=== PATIENT | female | born 1930 | race African-American/Black ===

== ENCOUNTER 2016-03-13 21:20 | Outpatient (CLI) | payer MEDICARE, MEDICAID ==
[~2016-03-13 21:20] MED LIST: ALBU0.632 IH; ALBU17AE23 IH; ALBU8.5H2 IH; ALLP100T PO; AMLO2.5T2 PO; AMLO5TAB2 PO; ASP325TEC PO; ATRV10T PO; Azithromycin PO; CALC0.257 PO; CEFD300C3 PO; CYCL5TAB PO; FAMO20TA5 PO; FLUT1DIS26 IH; HUM100IN4 SQ; HUM100VI12 SQ; HUM100VI4 SQ; HYDR-508 PO; HYDR118S10 PO; HYDR1TAB66 PO; HYDR1TAB86 PO; INSA10V SQ; INSU100I14 SC; INSU100I29 SC; KCL20TCR PO; LEVE500T6 PO; LISI10TA PO; LISI20TA PO; MAGN-47 PO; MNTL10T PO; OFLO5DRO2 OS; PGLT30T PO; POTA20TA7 PO; PRD10T PO; PRED5DRO2I OS; Prednisone PO; RNT150T PO; TIZA2TAB3 PO; TORS10TA PO; TRAM-42 PO; TRS20T PO; [UNRECOGNIZED DRUG - CODE] OS; norflex PO
--- OUTSIDE RECORDS SUMMARY | 2016-03-13 22:33 | XMS REPORT | Continuity of Care Document ---
Author Author [facility] Organization [facility] Address Unknown Phone Unavailable Care Team Providers Care Passenger Interline Clerk Name Role Phone [facility] OF PCP Insurance Providers Payer Name Policy Number Subscriber Name Relationship [employer] Medicare [id number] Ritu Hahn 19 Self / Same As Patient [facility] [employer] [id number] Ritu Hahn 18 Self / Same As Patient Advance Directives Directive Response Recorded Date/Time Advance Directives No 07/06/14 7:17pm Health Care Power of Scraper Meat daughter working on it 07/06/14 7:17pm Organ Donor Yes 07/06/14 7:17pm Resuscitation Status Full Code 07/06/14 7:17pm Problems Medical Problems Problem Onset Date Status HTN (hypertension) Unknown Active Poor appetite Unknown Active Leukocytosis Unknown Active Seizure Unknown Active Hypoglycemia associated with diabetes Unknown Active Poor appetite Unknown Active Bronchitis Unknown Active Chest pain Unknown Active Hyperglycemia Unknown Active Medications Medication Dose Route Sig Days/Qty Instructions Order Date Discontinued Date Status Hum Insulin Nph/Reg Insulin Hm 12 Unit SQ BEDTIME 07/29/10 08/22/13 Discontinued Insulin Aspart 25 Units SQ DAILY TAKES IN AM 07/29/10 01/06/11 Discontinued Acetaminophen/Hydrocodone Bitart (Lortab) 1 Each PO Q6HR PRN 12/25/10 Discontinued Levetiracetam (Keppra) 500 Mg PO TWICE A DAY 07/29/10 Active Pioglitazone HCl 30 Mg PO DAILY 07/29/10 12/25/10 Discontinued Salmeterol Xinafoate/Fluticasone 1 Puff IH TWICE A DAY 07/29/10 Discontinued Famotidine (Pepcid) 20 Mg PO TWICE A DAY 07/29/10 08/22/13 Discontinued Potassium Chloride 20 Meq PO DAILY 07/29/10 02/26/14 Discontinued Montelukast Sodium 10 Mg PO BEDTIME 07/29/10 Active Albuterol 2 Puff IH EVERY 6 HOURS PRN SHORTNESS OF BREATH 07/29/10 08/22/13 Discontinued Torsemide 20 Mg PO DAILY 07/29/10 08/22/13 Discontinued Albuterol Sulfate (Proventil Nebs) 1 Each IH Q 4 - 6 HRS PRN 25 Qty 29/1201/06/11 Discontinued Tizanidine Hcl 2 Mg PO DAILY 12/25/10 08/22/13 Discontinued Allopurinol 100 Mg PO BEDTIME 12/25/10 Active Lisinopril 10 Mg PO DAILY 12/25/10 08/22/13 Discontinued Hydrocodone Bit/Acetaminophen 1 Tab PO FOUR TIMES DAILY PRN 01/03/11 08/22/13 Discontinued Bromfenac Sodium 1 Drop OS DAILY LEFT EYE DAILY DIRECTED 01/03/11 08/22/13 Discontinued Prednisolone Acetate 1 Drop OS FOUR TIMES DAILY 01/03/11 08/22/13 Discontinued Ofloxacin 1 Drop OS THREE TIMES A DAY ONE DROP LEFT EYE TID 01/03/11 08/22/13 Discontinued Hum Insulin Nph/Reg Insulin Hm 37 Units SQ DAILY 01/06/11 02/26/14 Discontinued Atorvastatin Calcium 10 Mg PO BEDTIME 01/06/11 Active Prednisone 10 Mg PO TAPER THEN 2 TABS DAILY FOR 3 DAYS 01/06/1108/22 Discontinued Hum Insulin Nph/Reg Insulin Hm 18 Units SQ BEDTIME 08/22/13 Discontinued Acetaminophen/Hydrocodone Bitart 1 Tab PO THREE TIMES A DAY PRN PAIN 08/22/13 02/26/14 Discontinued Albuterol 2 Puff IH EVERY 4HRS PRN SHORTNESS OF BREATH 08/22/13 Active Torsemide 30 Mg PO DAILY 08/22/13 Active Lisinopril 20 Mg PO DAILY 08/22/13 Active Ranitidine HCl 150 Mg PO TWICE A DAY PRN ACID REFLUX 08/22/13 Active Amlodipine Besylate 5 Mg PO DAILY 08/22/13 Active Calcitriol 0.25 Mcg PO DAILY 08/22/13 Active Aspirin 325 Mg PO DAILY 30 Qty 08/23/13 02/26/14 Discontinued Potassium Chloride 20 Meq PO DAILY 02/26/14 Active Hydrocodone/Acetaminophen 1 Tab PO FOUR TIMES DAILY PRN PAIN Active Lisinopril 10 Mg PO BEDTIME TAKES 1/2 (20MG) TABLET 02/26/14 Active Hum Insulin NPH/Reg Insulin Hm 34 Unit SQ DAILY 02/26/14 Active Hum Insulin NPH/Reg Insulin Hm 18 Unit SQ BEDTIME 02/26/14 Active Aspirin 325 Mg PO DAILY 02/26/14 Active Magnesium Hydroxide 30 Ml PO DAILY PRN CONSTIPATION 02/26/14 Active [Prednisone] 50 Mg PO DAILY@0700 5 Qty 02/26/14 07/06/14 Discontinued [Azithromycin] 250 Mg PO DAILY 3 Qty 02/26/14 07/06/14 Discontinued Social History Social History Problem Response Recorded Date/Time Alcohol Use Denies Use 07/06/2014 7:17pm Recreational Drug Use No 07/06/2014 7:17pm Recent Foreign Travel No 11/12/2013 7:26pm Recent Infectious Disease Exposure No 11/12/2013 7:26pm Hospitalization with Isolation Denies 07/06/2014 7:17pm Smoking Status Never a Smoker 07/06/2014 7:17pm Query Response Start Date Stop Date Smoking Status Never a Smoker Hospital Discharge Instructions No hospital discharge instructions. Plan of Care No plan of care. Functional Status No functional status results. Allergies, Adverse Reactions, Alerts Allergen Type Severity Reaction Status Last Updated No Known Drug Allergies Active 08/22/13 Immunizations Name Given Type Date of Pneumonia Vaccine 11/22/12 Historical Date of Influenza Vaccine 11/20/13 Historical Vital Signs Acute Vital Signs Vital Response Date/Time Temperature (Fahrenheit) 98.0 degrees F (97.6 - 99.5) Temperature (Calculated Celsius) 36.14752 degrees C (36.4 - 37.5) Pulse Rate (adult) 92 bpm (60 - 90) Respiratory Rate 18 bpm (12 - 24) O2 Sat by Pulse Oximetry 99 % (88 - 100) Blood Pressure 214/111 mm Hg Pain Pain Intensity 0 Height (Feet) 5 feet Height (Inches) 2 inches Height (Calculated Centimeters) 157.671355 cm Weight (Pounds) 284 pounds Weight (Calculated Kilograms) 128.341178 kilograms Calculated BMI 51.94 Results Laboratory Results Test Name Result Units Flags Reference Collection Date/Time Result Date/ Time Comments White Blood Count 14.9 10^3/uL H 4.3-11.0 07/06/2014 7:pm 07/06/2014 7: 36pm Red Blood Count 4.02 10^6/uL L 4.35-5.85 07/06/2014 7:07/06/2014 7: 36pm Hemoglobin 12.0 G/DL 11.5-16.0 07/06/2014 7:07/06/2014 7:36pm Hematocrit 37 % 35-52 07/06/2014 7:07/06/2014 7:36pm Mean Corpuscular Volume 92 FL 80-99 07/06/2014 7:07/06/2014 7: 36pm Mean Corpuscular Hemoglobin 30 PG 25-34 07/06/2014 7:07/06/2014 7: 36pm Mean Corpuscular Hemoglobin Concent 33 G/DL 32-36 07/06/2014 7: 7:36pm Red Cell Distribution Width 14.4 % 10.0-14.5 07/06/2014 7:2014 7:36pm Platelet Count 224 10^3/uL 130-400 07/06/2014 7:07/06/2014 7:36pm Mean Platelet Volume 10.2 FL 7.4-10.4 07/06/2014 7:07/06/2014 7: 36pm Neutrophils (%) (Auto) 70 % 42-75 07/06/2014 7:07/06/2014 7:36pm Lymphocytes (%) (Auto) 22 % 12-44 07/06/2014 7:07/06/2014 7:36pm Monocytes (%) (Auto) 8 % 0-12 07/06/2014 7:07/06/2014 7:36pm Eosinophils (%) (Auto) 0 % 0-10 07/06/2014 7:07/06/2014 7:36pm Basophils (%) (Auto) 0 % 0-10 07/06/2014 7:2015 7:36pm Neutrophils # (Auto) 10.5 X 10^3 H 1.8-7.8 07/06/2014 7:20pm 07/06/2014 7 :36pm Lymphocytes # (Auto) 3.3 X 10^3 1.0-4.0 07/06/2014 7:pm 07/06/2014 7: 36pm Monocytes # (Auto) 1.1 X 10^3 H 0.0-1.0 07/06/2014 7:07/06/2014 7: 36pm Eosinophils # (Auto) 0.0 10^3/uL 0.0-0.3 07/06/2014 7:20pm 07/06/2014 7 :36pm Basophils # (Auto) 0.0 10^3/uL 0.0-0.1 07/06/2014 7:pm 07/06/2014 7: 36pm Neutrophils % (Manual) 77 % 07/06/2014 7:pm 07/06/2014 7:55pm Band Neutrophils 0 % 07/06/2014 7:pm 07/06/2014 7:55pm Lymphocytes % (Manual) 9 % 07/06/2014 7:pm 07/06/2014 7:55pm Monocytes % (Manual) 6 % 07/06/2014 7:pm 07/06/2014 7:55pm Eosinophils % (Manual) 0 % 07/06/2014 7:pm 07/06/2014 7:55pm Basophils % (Manual) 0 % 07/06/2014 7:pm 07/06/2014 7:55pm Reactive Lymphocytes 8 % 07/06/2014 7:pm 07/06/2014 7:55pm Polychromasia SLIGHT 07/06/2014 7:pm 07/06/2014 7:55pm Prothrombin Time 12.9 SEC 12.2-14.7 07/06/2014 7:pm 07/06/2014 7: 44pm INR Comment 1.0 0.8-1.4 07/06/2014 7:07/06/2014 7:44pm INTERPRETIVE DATA SUGGESTED THERAPEUTIC RANGE FOR INR'S: VENOUS THROMBOSIS, PULMONARY EMBOLISM, OR PREVENTION OF SYSTEMIC EMBOLISM (EG. IN ATRIAL FIBRILLATION): 2.0 - 3.0 MECHANICAL PROSTHETIC HEART VALVES: 2.5 - 3.5* *NOTE: INR'S UP TO 4.5 MAY BE NECESSARY IN SELECTED GROUPS OF HIGH RISK PATIENTS. [employer] CONSENSUS CONFERENCE ON ANTITHROMBOTIC THERAPY (2000). Activated Partial Thromboplast Time 33 SEC 24-35 07/06/2014 7: 7:44pm D-Dimer 0.74 UG/ML H 0.00-0.49 07/06/2014 7:07/06/2014 8:07pm Sodium Level 136 MMOL/L 135-145 07/06/2014 7:07/06/2014 8:07pm Potassium Level 4.2 MMOL/L 3.6-5.0 07/06/2014 7:07/06/2014 8:07pm Chloride Level 97 MMOL/L L 98-107 07/06/2014 7:07/06/2014 8:07pm Carbon Dioxide Level 28 MMOL/L 21-32 07/06/2014 7:07/06/2014 8: 07pm Blood Urea Nitrogen 27 MG/DL H 7-18 07/06/2014 7:07/06/2014 8:07pm Creatinine 1.48 MG/DL H 0.60-1.30 07/06/2014 7:07/06/2014 8:07pm BUN/Creatinine Ratio 18 07/06/2014 7:07/06/2014 8:07pm Estimat Glomerular Filtration Rate 41 07/06/2014 7:07/06/2014 8:07pm GFR INTERPRETIVE DATA UNITS FOR ESTIMATED GFR (eGFR): mL/min/1.73 M2 REFERENCE RANGE FOR ESTIMATED GFR (eGFR) eGFR NORMAL eGFR >60 MODERATELY DECREASED eGFR 30-59 SEVERLY DECREASED eGFR 15-29 KIDNEY FAILURE <15 (OR DIALYSIS) Glucose Level 364 MG/DL H 70-105 07/06/2014 7:07/06/2014 8:07pm Glucometer 223 MG/DL H 70-110 07/06/2014 8:pm 07/06/2014 8:28pm Calcium Level 10.2 MG/DL H 8.5-10.1 07/06/2014 7:07/06/2014 8:07pm Magnesium Level 2.2 MG/DL 1.8-2.4 07/06/2014 7:07/06/2014 8:07pm Total Bilirubin 0.4 MG/DL 0.1-1.0 07/06/2014 7:20pm 07/06/2014 8:07pm Alkaline Phosphatase 111 U/L 40-136 07/06/2014 7:pm 07/06/2014 8: 07pm Aspartate Amino Transf (AST/SGOT) 13 U/L 5-34 07/06/2014 7:20pm 2014 8:07pm Alanine Aminotransferase (ALT/SGPT) 12 U/L 0-55 07/06/2014 7:2007/06 8:07pm Troponin I < 0.30 NG/ML <0.30 07/06/2014 7:pm 07/06/2014 8:07pm Myoglobin 81.8 NG/ML 10.0-92.0 07/06/2014 7:20pm 07/06/2014 8:07pm Total Protein 7.2 G/DL 6.4-8.2 07/06/2014 7:07/06/2014 8:07pm Albumin 4.2 G/DL 3.2-4.5 07/06/2014 7:20pm 07/06/2014 8:07pm Procedures Procedure Status Date Provider(s) Tracing only of electrocardiogram completed 07/06/14 ISMA VELÁZQUEZ MD Encounters Encounter Location Date/Time Departed Emergency Room Via [facility] 07/06/14 7:05pm Recent Diagnosis
== END 2016-03-14 07:25 ==
LOC: SLEEP 21:20
PROVIDERS: ATTEND Internal Medicine Critical Care Medicine
DX: G47.33 Obstructive sleep apnea (adult) (pediatric) (principal)
CPT/HCPCS: 95811